=== PATIENT | male | born 1965 | race Caucasian/White ===

== ENCOUNTER 2020-10-24 13:08 | Inpatient (IN) | payer MEDICAID ==
[~2020-10-24] VITALS: Ht 170.2 cm; Wt 64.4 kg
[2020-10-24] MEDS ORDERED: QUET25TA PO (17:00)
[2020-10-24] MEDS ORDERED: GABA-1216 PO (17:00)
[2020-10-24] MEDS ORDERED: ASPI-1522 PO (17:00)
[2020-10-24] MEDS ORDERED: DOCU-275 PO (17:00)
[2020-10-24 19:40] VITALS: BP 104/68
[2020-10-25 00:11] VITALS: BP 107/66
[2020-10-25 07:23] LABS: BASOPHILS % (AUTO) 1.5 % (0.0-2.0); EOSINOPHILS % (AUTO) 8.5 % (1.0-6.0); HEMATOCRIT 42.7 % (41-53); HEMOGLOBIN 14.5 g/dL (13.5-17.5); LYMPHOCYTES % (AUTO) 16.5 % (22.0-44.0); MEAN CORPUSCULAR HEMOGLOBIN 30.1 pg (26.0-34.0); MEAN CORPUSCULAR HGB CONC 33.9 G/dL (31.0-37.0); MEAN CORPUSCULAR VOLUME 89 fL (80-100); MONOCYTES # (AUTO) 0.4 K/uL (0.1-1.0); MONOCYTES % (AUTO) 6.2 % (2.0-9.0); NEUTROPHILS # (AUTO) 4.2 K/uL (1.8-7.7); NEUTROPHILS % (AUTO) 67.3 % (40.0-70.0); PLATELET COUNT (AUTO) 339 K/uL (150-450)
[2020-10-25 07:48] LABS: ALANINE AMINOTRANSFERASE 28 U/L (12-78); ALBUMIN 3.2 g/dL (3.4-5.0); ALKALINE PHOSPHATASE 108 U/L (46-116); ANION GAP 5 mmol/L (8-16); ASPARTATE AMINOTRANSFERASE 17 U/L (15-37); BILIRUBIN,TOTAL 0.2 mg/dL (0.1-1.0); CALCIUM, TOTAL 8.8 mg/dL (8.8-10.5); CARBON DIOXIDE 28 mmol/L (22-29); CHLORIDE 106 mmol/L (98-107); CHOL/HDL RATIO 3.6 (4.2-7.3); CHOLESTEROL 153 mg/dL (131-200); CREATININE 0.79 mg/dL (0.60-1.30); FREE T4 (FREE THYROXINE) 1.01 ng/dL (0.76-1.46); GLOMERULAR FILTR. RATE CALC > 60 mL/min (>60); GLUCOSE,RANDOM 98 mg/dL (70-110); HDL CHOLESTEROL 42 mg/dL (40-60); HEMOGLOBIN A1C 5.5 % (3.8-5.6); LDL CHOL (CALC.) 98 mg/dL (0-130); POTASSIUM 4.1 mmol/L (3.5-5.1); SODIUM SERUM 139 mmol/L (136-145); THYROID STIMULATING HORMONE 1.23 uIU/mL (0.36-3.74); TOTAL PROTEIN, SERUM 7.1 g/dL (6.4-8.2); TRIGLYCERIDES 67 mg/dL (15-150); UREA NITROGEN, BLOOD 13 mg/dL (7-18)
[2020-10-25 08:18] VITALS: BP 133/89
[2020-10-25] MEDS ORDERED: MAG HYDROX/AL HYDROX/SIMETH ES 30 ML SUSPENSION UDCUP PO PRN (08:30)
[2020-10-25] MEDS ORDERED: ACETAMINOPHEN 325 MG TABLET PO PRN (08:30)
[2020-10-25] MEDS ORDERED: LOPERAMIDE HCL 2 MG CAPSULE PO PRN (08:30)
[2020-10-25] MEDS ORDERED: ALBUTEROL SULFATE HFA 90 MCG/PUFF 8 GM INHALER IH PRN (08:30)
[2020-10-25] MEDS ORDERED: MAGNESIUM HYDROXIDE SUSPENSION 30 ML UDCUP PO PRN (08:30)
[2020-10-25] MEDS ORDERED: ONDANSETRON HCL 4 MG TABLET PO PRN (08:30)
[2020-10-25] MEDS ORDERED: DOCUSATE SODIUM 100 MG CAPSULE PO PRN (08:30)
[2020-10-25] MEDS ORDERED: CloNIDine HCL 0.1 MG TABLET PO PRN (08:30)
[2020-10-25] MEDS ORDERED: PETROLATUM,WHITE 28 GM JELLY TP PRN (08:30)
[2020-10-25] MEDS ORDERED: GuaiFENesin/D-METHORPHAN [SUGAR-FREE] 200-20MG/10 ML SYRUP UDCUP PO PRN (08:30)
[2020-10-25] MEDS ORDERED: IBUPROFEN 400 MG TABLET PO PRN (08:30)
[2020-10-25] MEDS: ASPIRIN 81 MG DR TABLET PO SCH (09:31)
[2020-10-25] MEDS: GABAPENTIN 100 MG CAPSULE PO SCH ×3 (09:31→16:30)
[2020-10-25] MEDS: NICOTINE 14 MG/24 HOUR PATCH TD PRN (09:49)
[2020-10-25 16:09] VITALS: BP 114/73
[2020-10-25] MEDS: QUEtiapine FUMARATE 100 MG TABLET PO SCH (16:30)
[2020-10-25] MEDS: HALOPERIDOL 5 MG TABLET PO PRN (17:00)
[2020-10-25] MEDS: LORazepam 2 MG TABLET PO PRN (17:00)
[2020-10-26 06:44] VITALS: BP 110/75
[2020-10-26] MEDS: QUEtiapine FUMARATE 100 MG TABLET PO SCH ×3 (08:19→16:39)
[2020-10-26] MEDS: ASPIRIN 81 MG DR TABLET PO SCH (08:19)
[2020-10-26] MEDS: LORazepam 2 MG TABLET PO PRN (08:19)
[2020-10-26] MEDS: GABAPENTIN 100 MG CAPSULE PO SCH ×3 (08:19→16:38)
[2020-10-26 09:12] VITALS: BP 122/82
[2020-10-26 16:07] VITALS: BP 118/79
[2020-10-27 04:06] VITALS: BP 116/74
[2020-10-27 08:27] VITALS: BP 120/74
[2020-10-27] MEDS: QUEtiapine FUMARATE 100 MG TABLET PO SCH ×3 (08:36→16:22)
[2020-10-27] MEDS: ASPIRIN 81 MG DR TABLET PO SCH (08:36)
[2020-10-27] MEDS: LORazepam 2 MG TABLET PO PRN ×2 (08:36→16:22)
[2020-10-27] MEDS: GABAPENTIN 100 MG CAPSULE PO SCH ×3 (08:36→16:22)
[2020-10-27 16:05] VITALS: BP 115/79
[2020-10-27] MEDS: NICOTINE 14 MG/24 HOUR PATCH TD PRN (17:17)
[2020-10-28 00:27] VITALS: BP 121/78
[2020-10-28] MEDS: LORazepam 2 MG TABLET PO PRN ×2 (08:17→16:46)
[2020-10-28] MEDS: QUEtiapine FUMARATE 100 MG TABLET PO SCH ×3 (08:17→16:46)
[2020-10-28] MEDS: GABAPENTIN 100 MG CAPSULE PO SCH ×3 (08:17→16:46)
[2020-10-28] MEDS: ASPIRIN 81 MG DR TABLET PO SCH (08:17)
[2020-10-28 08:28] VITALS: BP 114/80
[2020-10-28] MEDS: NICOTINE 14 MG/24 HOUR PATCH TD PRN (14:56)
[2020-10-28 16:18] VITALS: BP 117/76
[2020-10-28] MEDS: ZOLPIDEM TARTRATE 10 MG TABLET PO PRN (20:40)
[2020-10-29] MEDS: LORazepam 2 MG TABLET PO PRN ×2 (03:20→17:23)
[2020-10-29 03:28] VITALS: BP 124/78
[2020-10-29 08:28] VITALS: BP 107/74
[2020-10-29] MEDS: GABAPENTIN 100 MG CAPSULE PO SCH ×3 (08:59→17:23)
[2020-10-29] MEDS: QUEtiapine FUMARATE 100 MG TABLET PO SCH ×3 (08:59→17:23)
[2020-10-29] MEDS: ASPIRIN 81 MG DR TABLET PO SCH (08:59)
[2020-10-29 16:04] VITALS: BP 134/87
[2020-10-29] MEDS: HALOPERIDOL 5 MG TABLET PO PRN (17:23)
[2020-10-29] MEDS: NICOTINE 14 MG/24 HOUR PATCH TD PRN (17:40)
[2020-10-30] MEDS: ZOLPIDEM TARTRATE 10 MG TABLET PO PRN ×2 (00:25→20:50)
[2020-10-30 00:26] VITALS: BP 129/87
[2020-10-30 08:29] VITALS: BP 112/73
[2020-10-30] MEDS: ASPIRIN 81 MG DR TABLET PO SCH (08:29)
[2020-10-30] MEDS: LORazepam 2 MG TABLET PO PRN (08:29)
[2020-10-30] MEDS: GABAPENTIN 100 MG CAPSULE PO SCH ×3 (08:29→17:23)
[2020-10-30] MEDS: QUEtiapine FUMARATE 100 MG TABLET PO SCH (08:29)
[2020-10-30 16:10] VITALS: BP 110/71
[2020-10-30] MEDS: OLANZapine 10 MG TABLET PO SCH (20:13)
[2020-10-31 06:29] VITALS: BP 132/90
[2020-10-31 08:00] VITALS: BP 102/63
[2020-10-31] MEDS: GABAPENTIN 100 MG CAPSULE PO SCH ×3 (08:23→16:34)
[2020-10-31] MEDS: ASPIRIN 81 MG DR TABLET PO SCH (08:23)
[2020-10-31] MEDS: LORazepam 2 MG TABLET PO PRN ×2 (08:26→16:34)
[2020-10-31] MEDS: NICOTINE 14 MG/24 HOUR PATCH TD PRN (09:29)
[2020-10-31 16:04] VITALS: BP 133/71
[2020-10-31] MEDS: OLANZapine 10 MG TABLET PO SCH (20:21)
[2020-10-31] MEDS: ZOLPIDEM TARTRATE 10 MG TABLET PO PRN (20:21)
[2020-11-01 05:24] VITALS: BP 130/69
[2020-11-01] MEDS: ASPIRIN 81 MG DR TABLET PO SCH (08:18)
[2020-11-01] MEDS: GABAPENTIN 100 MG CAPSULE PO SCH ×3 (08:18→16:04)
[2020-11-01] MEDS: LORazepam 2 MG TABLET PO PRN ×2 (08:18→16:04)
[2020-11-01] MEDS: NICOTINE 14 MG/24 HOUR PATCH TD PRN (08:19)
[2020-11-01 08:58] VITALS: BP 115/75
[2020-11-01 16:21] VITALS: BP 137/86
[2020-11-01] MEDS: OLANZapine 10 MG TABLET PO SCH (20:31)
[2020-11-01] MEDS: ZOLPIDEM TARTRATE 10 MG TABLET PO PRN (20:31)
[2020-11-02 05:30] VITALS: BP 110/73
[2020-11-02] MEDS: ASPIRIN 81 MG DR TABLET PO SCH (08:14)
[2020-11-02] MEDS: NICOTINE 14 MG/24 HOUR PATCH TD PRN (08:14)
[2020-11-02] MEDS: GABAPENTIN 100 MG CAPSULE PO SCH ×3 (08:14→17:12)
[2020-11-02] MEDS: LORazepam 2 MG TABLET PO PRN ×2 (08:14→17:24)
[2020-11-02 08:24] VITALS: BP 114/74
[2020-11-02 16:23] VITALS: BP 123/86
[2020-11-02] MEDS: HALOPERIDOL 5 MG TABLET PO PRN (19:10)
[2020-11-02] MEDS: OLANZapine 10 MG TABLET PO SCH (20:08)
[2020-11-03 05:09] VITALS: BP 128/82
[2020-11-03] MEDS: GABAPENTIN 100 MG CAPSULE PO SCH ×3 (09:46→16:44)
[2020-11-03] MEDS: ASPIRIN 81 MG DR TABLET PO SCH (09:46)
[2020-11-03 10:36] VITALS: BP 107/70
[2020-11-03] MEDS: NICOTINE 14 MG/24 HOUR PATCH TD PRN (11:16)
[2020-11-03 16:35] VITALS: BP 138/82
[2020-11-03] MEDS: LORazepam 2 MG TABLET PO PRN (17:19)
[2020-11-03] MEDS: HALOPERIDOL 5 MG TABLET PO PRN (17:19)
[2020-11-03] MEDS: OLANZapine 10 MG TABLET PO SCH (20:39)
[2020-11-04 01:42] VITALS: BP 105/68
[2020-11-04 09:15] VITALS: BP 110/67
[2020-11-04] MEDS: ASPIRIN 81 MG DR TABLET PO SCH (09:37)
[2020-11-04] MEDS: GABAPENTIN 100 MG CAPSULE PO SCH ×2 (09:37→12:27)
[2020-11-04] MEDS ORDERED: OLAN10TA74 PO (12:31)
[2020-11-04] MEDS: NICOTINE 14 MG/24 HOUR PATCH TD PRN (13:48)
== END 2020-11-04 15:04 | disposition home or self-care (01) | DRG 750 ==
LOC: B3A 19:30 → B2S 11-02 13:30
DX: F25.1 Schizoaffective disorder, depressive type (principal); R45.851 Suicidal ideations; E44.1 Mild protein-calorie malnutrition; F10.10 Alcohol abuse, uncomplicated; F25.9 Schizoaffective disorder, unspecified; Z68.22 Body mass index [BMI] 22.0-22.9, adult
CPT/HCPCS: 80053; 80061; 83036; 84439; 84443; 85025

== ENCOUNTER 2020-11-13 20:27 | Inpatient (IN) | payer MEDICAID ==
[~2020-11-13] VITALS: Ht 167.6 cm; Wt 67.0 kg
[~2020-11-13 20:27] MED LIST: ASPI-1522 PO; GABA-1216 PO; OLAN10TA74 PO
[2020-11-13 21:13] LABS: BASOPHILS % (AUTO) 1.2 % (0.0-2.0); EOSINOPHILS % (AUTO) 4.7 % (1.0-6.0); HEMATOCRIT 39.3 % (41-53); HEMOGLOBIN 13.2 g/dL (13.5-17.5); LYMPHOCYTES # (AUTO) 1.8 K/uL (1.0-4.8); MEAN CORPUSCULAR HEMOGLOBIN 29.9 pg (26.0-34.0); MEAN CORPUSCULAR HGB CONC 33.5 G/dL (31.0-37.0); MEAN CORPUSCULAR VOLUME 89 fL (80-100); MONOCYTES # (AUTO) 0.6 K/uL (0.1-1.0); MONOCYTES % (AUTO) 6.9 % (2.0-9.0); NEUTROPHILS # (AUTO) 5.6 K/uL (1.8-7.7); NEUTROPHILS % (AUTO) 66.2 % (40.0-70.0); PLATELET COUNT (AUTO) 348 K/uL (150-450); RED BLOOD CELL COUNT(AUTO) 4.41 MIL/uL (4.50-5.90)
[2020-11-13 21:21] LABS: ANION GAP 7 mmol/L (8-16); CALCIUM, TOTAL 8.6 mg/dL (8.8-10.5); CARBON DIOXIDE 26 mmol/L (22-29); CHLORIDE 103 mmol/L (98-107); CREATININE 0.69 mg/dL (0.60-1.30); GLOMERULAR FILTR. RATE CALC > 60 mL/min (>60); GLUCOSE,RANDOM 83 mg/dL (70-110); POTASSIUM 3.5 mmol/L (3.5-5.1); SODIUM SERUM 136 mmol/L (136-145); UREA NITROGEN, BLOOD 11 mg/dL (7-18)
[2020-11-13 21:27] LABS: ALANINE AMINOTRANSFERASE 26 U/L (12-78); ALBUMIN 3.5 g/dL (3.4-5.0); ALKALINE PHOSPHATASE 114 U/L (46-116); ASPARTATE AMINOTRANSFERASE 14 U/L (15-37); BILIRUBIN,TOTAL 0.2 mg/dL (0.1-1.0)
[2020-11-13 23:35] LABS: AMPHET/METH SCREEN,URINE POSITIVE (NEGATIVE); BARBITURATE SCREEN, URINE NEGATIVE (NEGATIVE); BENZODIAZEPINES SCREEN,URINE NEGATIVE (NEGATIVE); CANNABINOID SCREEN,URINE POSITIVE (NEGATIVE); COCAINE SCREEN,URINE NEGATIVE (NEGATIVE); METHADONE SCREEN, URINE NEGATIVE (NEGATIVE); OPIATE SCREEN,URINE NEGATIVE (NEGATIVE)
[2020-11-13 23:38] LABS: PHENCYCLIDINE SCREEN,URINE NEGATIVE (NEGATIVE)
[2020-11-14 01:40] LABS: COVID AG,FIA SOURCE NASAL SWAB
[2020-11-14 01:50] LABS: APPEARANCE,URINE CLEAR (CLEAR); BILIRUBIN,URINE NEGATIVE (NEGATIVE); GLUCOSE, URINE (UA) NEGATIVE (NEGATIVE); KETONES,URINE NEGATIVE (NEGATIVE); LEUKOCYTE ESTERASE ,URINE NEGATIVE (NEGATIVE); NITRATE,URINE NEGATIVE (NEGATIVE); OCCULT BLOOD,URINE NEGATIVE (NEGATIVE); PH,URINE 6.5 (5.0-8.0); PROTEIN,URINE NEGATIVE (NEGATIVE); UROBILINOGEN,URINE 0.2 mg/dL (<=1.0)
[2020-11-14 02:01] LABS: CHOLESTEROL 146 mg/dL (131-200); HDL CHOLESTEROL 49 mg/dL (40-60); LDL CHOL (CALC.) 83 mg/dL (0-130); TRIGLYCERIDES 69 mg/dL (15-150)
[2020-11-14 04:07] VITALS: BP 129/89
[2020-11-14] MEDS ORDERED: ONDANSETRON HCL 4 MG TABLET PO PRN (07:15)
[2020-11-14] MEDS ORDERED: GuaiFENesin/D-METHORPHAN [SUGAR-FREE] 200-20MG/10 ML SYRUP UDCUP PO PRN (07:15)
[2020-11-14] MEDS ORDERED: CloNIDine HCL 0.1 MG TABLET PO PRN (07:15)
[2020-11-14] MEDS ORDERED: DOCUSATE SODIUM 100 MG CAPSULE PO PRN (07:15)
[2020-11-14] MEDS ORDERED: ALBUTEROL SULFATE HFA 90 MCG/PUFF 8 GM INHALER IH PRN (07:15)
[2020-11-14] MEDS ORDERED: MAGNESIUM HYDROXIDE SUSPENSION 30 ML UDCUP PO PRN (07:15)
[2020-11-14] MEDS ORDERED: PETROLATUM,WHITE 28 GM JELLY TP PRN (07:15)
[2020-11-14] MEDS ORDERED: LOPERAMIDE HCL 2 MG CAPSULE PO PRN (07:15)
[2020-11-14] MEDS ORDERED: MAG HYDROX/AL HYDROX/SIMETH ES 30 ML SUSPENSION UDCUP PO PRN (07:15)
[2020-11-14] MEDS ORDERED: NICOTINE 14 MG/24 HOUR PATCH TD PRN (07:15)
[2020-11-14] MEDS ORDERED: IBUPROFEN 400 MG TABLET PO PRN (07:15)
[2020-11-14] MEDS ORDERED: ACETAMINOPHEN 325 MG TABLET PO PRN (07:15)
[2020-11-14] MEDS: GABAPENTIN 100 MG CAPSULE PO SCH ×3 (09:07→16:45)
[2020-11-14] MEDS: ASPIRIN 81 MG DR TABLET PO SCH (09:07)
[2020-11-14] MEDS: LORazepam 2 MG TABLET PO PRN ×2 (10:28→16:44)
[2020-11-14] MEDS: NICOTINE 21 MG/24 HOUR PATCH TD SCH (10:34)
[2020-11-14 11:17] VITALS: BP 119/81
[2020-11-14 16:23] VITALS: BP 139/80
[2020-11-14] MEDS: QUEtiapine FUMARATE 100 MG TABLET PO PRN (16:44)
[2020-11-14] MEDS: ZOLPIDEM TARTRATE 10 MG TABLET PO PRN (20:37)
[2020-11-14] MEDS: OLANZapine 10 MG TABLET PO SCH (20:37)
[2020-11-15 07:24] LABS: BASOPHILS % (AUTO) 1.3 % (0.0-2.0); EOSINOPHILS % (AUTO) 5.7 % (1.0-6.0); HEMATOCRIT 40.8 % (41-53); HEMOGLOBIN 13.6 g/dL (13.5-17.5); LYMPHOCYTES # (AUTO) 1.3 K/uL (1.0-4.8); LYMPHOCYTES % (AUTO) 19.6 % (22.0-44.0); MEAN CORPUSCULAR HGB CONC 33.3 G/dL (31.0-37.0); MEAN CORPUSCULAR VOLUME 90 fL (80-100); MONOCYTES # (AUTO) 0.4 K/uL (0.1-1.0); MONOCYTES % (AUTO) 6.4 % (2.0-9.0); NEUTROPHILS # (AUTO) 4.4 K/uL (1.8-7.7); PLATELET COUNT (AUTO) 333 K/uL (150-450); RED BLOOD CELL COUNT(AUTO) 4.53 MIL/uL (4.50-5.90); RED CELL DISTRIBUTION WIDTH 13.4 % (11.5-14.5)
[2020-11-15] MEDS: QUEtiapine FUMARATE 100 MG TABLET PO PRN ×2 (08:30→18:33)
[2020-11-15] MEDS: LORazepam 2 MG TABLET PO PRN ×2 (08:30→18:33)
[2020-11-15] MEDS: GABAPENTIN 100 MG CAPSULE PO SCH ×3 (09:22→18:33)
[2020-11-15] MEDS: ASPIRIN 81 MG DR TABLET PO SCH (09:22)
[2020-11-15] MEDS: NICOTINE 21 MG/24 HOUR PATCH TD SCH (09:22)
[2020-11-15 16:22] VITALS: BP 115/65
[2020-11-15] MEDS: OLANZapine 10 MG TABLET PO SCH (21:09)
[2020-11-15] MEDS: ZOLPIDEM TARTRATE 10 MG TABLET PO PRN (21:10)
[2020-11-16 02:46] VITALS: BP 122/76
[2020-11-16] MEDS: LORazepam 2 MG TABLET PO PRN (08:15)
[2020-11-16 08:58] VITALS: BP 126/83
[2020-11-16] MEDS: ASPIRIN 81 MG DR TABLET PO SCH (09:00)
[2020-11-16] MEDS: GABAPENTIN 100 MG CAPSULE PO SCH ×3 (09:04→17:47)
[2020-11-16] MEDS: NICOTINE 21 MG/24 HOUR PATCH TD SCH (09:04)
[2020-11-16] MEDS: OLANZapine 10 MG TABLET PO SCH (19:48)
[2020-11-16 21:29] VITALS: BP 121/83
[2020-11-17 04:56] VITALS: BP 128/81
[2020-11-17 08:00] VITALS: BP 113/74
[2020-11-17] MEDS: ASPIRIN 81 MG DR TABLET PO SCH (09:22)
[2020-11-17] MEDS: GABAPENTIN 100 MG CAPSULE PO SCH ×3 (09:22→17:09)
[2020-11-17] MEDS: NICOTINE 21 MG/24 HOUR PATCH TD SCH (09:22)
[2020-11-17] MEDS: QUEtiapine FUMARATE 100 MG TABLET PO PRN (17:09)
[2020-11-17] MEDS: LORazepam 2 MG TABLET PO PRN (17:09)
[2020-11-17 17:11] VITALS: BP 108/74
[2020-11-17] MEDS: OLANZapine 10 MG TABLET PO SCH (20:50)
[2020-11-17] MEDS: ZOLPIDEM TARTRATE 10 MG TABLET PO PRN (20:50)
[2020-11-18 04:59] VITALS: BP 118/74
[2020-11-18 08:27] VITALS: BP 110/82
[2020-11-18] MEDS: LORazepam 2 MG TABLET PO PRN (08:45)
[2020-11-18] MEDS: NICOTINE 21 MG/24 HOUR PATCH TD SCH (09:32)
[2020-11-18] MEDS: GABAPENTIN 100 MG CAPSULE PO SCH ×3 (09:32→16:56)
[2020-11-18] MEDS: ASPIRIN 81 MG DR TABLET PO SCH (09:32)
[2020-11-18] MEDS: THIAMINE 100 MG TABLET PO SCH (12:45)
[2020-11-18] MEDS: MULTIVITAMINS WITH MINERALS, THERAPEUTIC TABLET PO SCH (13:14)
[2020-11-18] MEDS: FOLIC ACID 1 MG TABLET PO SCH (13:14)
[2020-11-18 17:05] VITALS: BP 102/71
[2020-11-18] MEDS: OLANZapine 10 MG TABLET PO SCH (20:42)
[2020-11-19 05:35] VITALS: BP 111/74
[2020-11-19] MEDS: LORazepam 2 MG TABLET PO PRN (08:30)
[2020-11-19] MEDS: GABAPENTIN 100 MG CAPSULE PO SCH (09:47)
[2020-11-19] MEDS: NICOTINE 21 MG/24 HOUR PATCH TD SCH (09:47)
[2020-11-19] MEDS: MULTIVITAMINS WITH MINERALS, THERAPEUTIC TABLET PO SCH (09:47)
[2020-11-19] MEDS: ASPIRIN 81 MG DR TABLET PO SCH (09:47)
[2020-11-19] MEDS: FOLIC ACID 1 MG TABLET PO SCH (09:47)
[2020-11-19] MEDS: THIAMINE 100 MG TABLET PO SCH (09:47)
[2020-11-19 10:43] VITALS: BP 121/89
== END 2020-11-19 13:53 | disposition home or self-care (01) | DRG 750 ==
LOC: EMS 20:27 → B3A 22:33
PROVIDERS: ADMIT Psychiatry & Neurology Child & Adolescent Psychiatry
DX: F25.1 Schizoaffective disorder, depressive type (principal); R45.851 Suicidal ideations; Z59.0 Homelessness; D64.9 Anemia, unspecified; F10.10 Alcohol abuse, uncomplicated; F15.10 Other stimulant abuse, uncomplicated; F17.200 Nicotine dependence, unspecified, uncomplicated; F12.10 Cannabis abuse, uncomplicated; Z79.899 Other long term (current) drug therapy; Z20.822 Contact with and (suspected) exposure to COVID-19
CPT/HCPCS: 80053; 80061; 81003; 85025; 99285; G0480